=== PATIENT | male | born 1990 | race Caucasian/White ===

== ENCOUNTER 2017-01-17 00:13 | Emergency (ER) | payer SELFPAY ==
[~2017-01-17] VITALS: Ht 180.3 cm; Wt 81.8 kg
[2017-01-17 00:17] VITALS: BP 145/93; PULSE 101; RESP 20; O2SAT 97
--- NOTE | 2017-01-17 00:39 | ED.REPORT ---
HPI-Head Prob / Injury Date of Service Jan 17, 2017 ED Provider: Oneal Diana DO Pt is a 26 y/o male who presents to the ED via EMS c/o a laceration over his left forehead s/p a fall on concrete onset tonight. He states he fell outside of a bar when he hit his head on concrete. He denies altered mental status. He denies vision loss, LOC, vomiting, nausea, focal weakness, bladder or bowel incontinence, or headache. Pt is adamantly denying a brain or head CT. Nursing Notes Stated Complaint: GLF/HEAD LACERATION Chief Complaint: Head, Face, Neck Trauma Nursing Notes Reviewed: Yes Allergies: Coded Allergies: sulfamethoxazole (Verified Allergy, Unknown, 01/17/17) trimethoprim (Verified Allergy, Unknown, 01/17/17) General Time Seen by Provider: 00:39 Chief Complaint Laceration (forehead) Hx Obtained From: Patient Arrived By: Ambulance Onset Occurred: Just prior to arrival Quality: Painful Severity: Current: Moderate Severity: Maximum: Severe Recent Healthcare: No recent doctor visit, No recent hospitalization Similar Sx Previous: No Risk-Head Prob / Injury )( IC Bleed Risk Strat EtOH useNo Age (<1 yr or >60 yrs), No Blood thinners, No Coagulation disorder, No Prior epidural bleed RF Statements: Risk factors reviewed Nexus C-Spine Criteria No post midline tendernes, Not intoxicated, Normal level or alertness, No focal neuro deficits, No distracting injuries Head CT Imaging Patient Presents WITHOUT: Loss of Conciousness, PostTraumatic Amnesia, PROCEED W/ CONSIDERATIONS RF Statements: Risk factors reviewed Past Medical History Past Medical History Denies Past Surgical History Denies Smoking History Unknown if Ever Smoker Social History Alcohol Use: "Social" Drug Use: THC Ambulatory Status Independent Review of Systems Laceration to L forehead Eyes: Denies: Blurred left, Blurred right, Visual loss bilateral Ears / Nose / Throat: Denies: Ear drainage bilateral, Ear drainage right GI: Denies: Abdominal pain, Nausea, Vomiting Musculoskeletal: Denies: Extremity pain, Extremity swelling Neurologic: Denies: Change LOC, Confusion, Dizziness, Focal weakness, Headache Complete sys rev & neg: except as marked. Male: Denies Incontinence Physical Exam Initial Vital Signs Vital Signs (First) Date Time Temp Pulse Resp B/P Pulse Ox O2 Delivery O2 Flow Rate FiO2 01/17/17 00:17 36.6 101 20 145/93 97 Room Air Initial VS: Reviewed Respiratory: Breath sounds normal, Clear to auscultation, No respiratory distress Cardiovascular: Regular rate & rhythm Abdomen / GI: Soft, Non-tender, No guarding, No rebound Back: No CVA tenderness Lymphatic: No lymphadenopathy Extremities: Vascular intact, Neuro intact, No swelling, No tenderness Skin: Warm, Dry, No cyanosis Psychiatric: Mood/affect normal, Behavior normal, Normal thought content General/Constitutional: Awake, Alert, Well appearing, Well developed, Well nourished, Cooperative, Not toxic appearing Head / Eyes: Normocephalic, PERRL, EOMI, No nystagmus, Conjunctiva NL, Cornea clear, Temporal arteries NL 6 cm laceration over L forehead Anterior chambers clear ENT: Atraumatic, Airway patent Neck: Supple, Full range of motion, No swelling, Non-tender, No midline vertebral tend, No masses, No crepitus Neurologic: Oriented X3, Speech NL, No motor deficits, No sensory deficits, CN II - XII intact, Reflexes equal bilat, Cerebellar NL, Memory NL, Gait NL GCS 15 Respiratory / Chest: Atraumatic, Breath sounds NL, Breath sounds = bilat, No respiratory distress Cardiovascular: Heart rate NL, Regular rhythm, Heart sounds NL Procedures Laceration Management Time: 01:19 Procedure Performed by: ED physician Consent / Setup / Site Prep: Informed consent provided, Consent from patient , Time-out performed, Hand hygiene observed, Stand sterile technique Location of Wound: Left forehead Wound Length: 6 cm Local Anesthesia: Lidocaine w epi 1% Digital Block: No Wound Preparation: Hibiclens - Chlorhexidine, Betadine Debridement: None Irrigation: Copious Repair Skin: ___ O (4O and 5O), Nylon # Sutures - Skin: 15 Suture Technique: Simple Post-Procedure / Complications: Antibiotic oint applied, Dressing applied, No complications, Condition improved, Tolerated procedure well, Patient stable Re-Eval/Medical Decision Med Decision/Clinical Course This is a very pleasant 18-year-old male who tripped and fell leaving a bar. He struck his forehead on a curb and suffered a roughly 4 cm laceration just above his left eyebrow. There was alcohol on board. He denied having loss of consciousness. One of his buddies saw the amount of blood flow so therefore EMS was called. He presents was awake alert oriented 4 the Ravindra Coma Scale of 15. He denies having a headache. He denies having neck pain. The wound was impressive and I could not certainly see what prompted the ambulance call. Taking, that he had been drinking some alcohol I discussed with him head and neck CT. He adamantly refused these. He does not have insurance and does not wish to incur these costs. In my opinion he is of sound mind and somebody can make his own healthcare decisions I do not feel that I could restrain him to perform a CAT scan and that is exactly what would take. Therefore we watched him for a while. I took care of the wounds. I had several conversations with him. He looked great. She showed no signs of traumatic brain injury or concussion. He had a eric come to take him home. He can have his eric wake him up several times throughout the night and have him brought right back in if he has any loss of consciousness or if he seems to be abnormal whatsoever. The wound is above the left orbit. There is no orbital bone tenderness or step- off. No atraumatic. I think that he is probably going to do well. No clinical signs of skull fracture. I was able to deeply palpate the wound in a bloodless field. I will have wound check in 48 hours. Return if any problems or any new or worrisome symptoms. Source of Hx: Old records Re-Evaluation/Progress #1: Time of Eval: 00:56 Re-Evaluation/Progress Note: Pt rechecked. Applied lidocaine with epi to prep for laceration management procedure. Pt adamantly denied brain and head CT due to cost. Re-Evaluation/Progress #2: Time of Eval: 01:19 Re-Evaluation/Progress Note: Pt rechecked. Performed laceration management procedure. Discussed plan for discharge. Patient understands and agrees with plan. F/U instructions and RTER warnings given. All questions addressed at this time. Counseled Regarding: Diagnosis, Lab results, Need for follow-up, When/why to return to ED Discharge & Departure Shift Change Sign-Out Response to Therapy: Improved Primary Impression: Facial laceration Encounter type: initial encounter Qualified Code: S01.81XA - Laceration without foreign body of other part of head, initial encounter Disposition: Home All VS Reviewed: Yes Patient Instructions: Head Injury (GEN), Laceration (ED) Additional Instructions: Keep the wound clean, dry and covered with antibacterial ointment. Have a wound check in 48 hours. If the wound becomes red, painful or any purulent discharge than start taking Keflex 4 times daily for 5 days. If this occurs and wants to be seen right away however. Stitches out in 5-7 days. Avoid direct sunlight to prevent scarring. Set up a follow-up with primary care physician with referral physician given. At your request we did not perform a CAT scan of your head. He need to stay with a responsible adult tonight. Set an alarm and be woken every 4 hours. Any difficulty waking him that he need to be seen right away. Any vomiting the knee be seen right away. It was very nice meeting you. Referrals: [facility] Attending Statement Portions of this note were transcribed by Ana Paula Lowe. I, Dr. Diana, personally performed the history, physical exam and medical decision-making; I reviewed and confirmed the accuracy of the information in the transcribed note. copies to: [facility] Oneal Diana DO Jan 17, 2017 00:39 Ana Paula Lowe Jan 17, 2017 00:45
[2017-01-17 01:47] VITALS: BP 132/85; PULSE 79; RESP 14; O2SAT 99
== END 2017-01-17 01:47 | disposition home or self-care (01) ==
LOC: SED 00:13
DX: S01.81XA Laceration without foreign body of other part of head, initial encounter (principal); W01.198A Fall on same level from slipping, tripping and stumbling with subsequent striking against other object, initial encounter; Y93.89 Activity, other specified; Y92.89 Other specified places as the place of occurrence of the external cause; Y99.8 Other external cause status; Z88.2 Allergy status to sulfonamides; Z88.8 Allergy status to other drugs, medicaments and biological substances